=== PATIENT | male | born 1950 | race Caucasian/White ===

== ENCOUNTER → 2016-12-21 | Outpatient (CLI) | payer OTHER, MEDICARE ==
[~2016-12-21] MED LIST: DOXY1TAB6 PO
[2016-12-21 10:13] LABS: ALT/SGPT 63 U/L (12-78); AST/SGOT 42 U/L (15-37); BLOOD UREA NITROGEN 17 mg/dl (7-18); BUN/CREATININE RATIO 17.7 (10-20); CARBON DIOXIDE 33 mmol/L (21-32); CHLORIDE 105 mmol/L (98-107); CREATININE 0.98 mg/dl (0.60-1.40); GLUCOSE 91 mg/dl (70-99); POTASSIUM 4.4 mmol/L (3.5-5.1); SODIUM 142 mmol/L (136-145)
[2016-12-21 10:18] LABS: ALB/GLOB RATIO 1.1 (0.9-2); ALKALINE PHOSPHATASE 79 U/L (45-117); CHOLESTEROL 222 mg/dl (0-200); CHOLESTEROL/HDL RATIO 4.1; HDL CHOLESTEROL 54 mg/dl; LDL CHOLESTEROL CALCULATED 143 mg/dl; TRIGLYCERIDES 127 mg/dl (0-150); VERY LOW DENSITY LIPOPROT CALC 25 mg/dl
== END | disposition home or self-care (01) ==
LOC: C.LAB1850 08:06
PROVIDERS: ATTEND Internal Medicine
DX: M54.5 Low back pain (principal); Z12.5 Encounter for screening for malignant neoplasm of prostate

== ENCOUNTER → 2017-09-08 | Outpatient (CLI) | payer OTHER, MEDICARE ==
[2017-09-08 12:42] LABS: BASO % 0.6 %; BASO ABS # 0.03 K/uL (0-0.2); EOS % 3.4 %; EOS ABS # 0.16 K/uL (0-0.5); HEMATOCRIT 47.7 % (42-52); HEMOGLOBIN 16.6 g/dL (14.0-18.0); IG# 0.01 K/uL (0.00-0.02); LYMPH % 28.9 %; LYMPH ABS # 1.37 K/uL (1.2-3.4); MEAN CELL VOLUME 94.8 fL (80-100); MEAN CORPUSCULAR HGB CONC 34.8 g/dl (32-36); MEAN PLATELET VOLUME 10.5 fL (7.4-10.4); MONO % 14.3 %; MONO ABS # 0.68 K/uL (0.11-0.59); NEUT % 52.6 %; NEUT ABS # 2.49 K/uL (1.4-6.5); PLATELET COUNT 235 K/uL (130-400); RED CELL DISTRIBUTION WIDTH CV 12.8 % (11.5-14.5); RED CELL DISTRIBUTION WIDTH SD 44.1 fL (36.4-46.3); WHITE BLOOD COUNT 4.74 K/uL (4.8-10.8)
[2017-09-08 12:51] LABS: ALT/SGPT 33 U/L (12-78); AST/SGOT 23 U/L (15-37); BLOOD UREA NITROGEN 13 mg/dl (7-18); CALCIUM 9.2 mg/dl (8.5-10.1); CARBON DIOXIDE 32 mmol/L (21-32); CREATININE 1.11 mg/dl (0.60-1.40); GLUCOSE 91 mg/dl (70-99); SODIUM 140 mmol/L (136-145)
[2017-09-08 13:02] LABS: ALKALINE PHOSPHATASE 79 U/L (45-117)
== END | disposition home or self-care (01) ==
LOC: C.LAB1850 10:13
PROVIDERS: ATTEND Internal Medicine
DX: K40.90 Unilateral inguinal hernia, without obstruction or gangrene, not specified as recurrent (principal)

== ENCOUNTER → 2017-12-04 | Outpatient (CLI) | payer OTHER, MEDICARE | END | disposition home or self-care (01) | LOC: C.LAB1850 09:11 | PROVIDERS: ATTEND Internal Medicine | DX: E78.5 Hyperlipidemia, unspecified (principal); N52.9 Male erectile dysfunction, unspecified ==

== ENCOUNTER 2020-10-19 05:24 | Observation (INO) ==
--- NOTE | 2020-10-19 06:26 | Emergency Department Note ---
Impression & Plan Brain TIA ED Provider Note NAME: SAI DAVIS AGE: 70 SEX: M ARRIVES VIA: Walk-In INFORMANT: Patient and the patient's ED PROVIDER(S): Saira Burroughs DO CHIEF COMPLAINT: Left arm weakness PLAN: Disposition: The patient will be evaluated by the [facility] [place] [facility] Condition: Stable MEDICAL DECISION MAKING: This is a 70-year-old male patient who has noted some episodes of being uncoordinated with his left arm over the past [address] scan of the brain was negative. The patient is in a normal sinus rhythm. Laboratory studies were unremarkable. The patient has no previous history of stroke or TIA. He does have a strong family history of multiple health problems. I am concerned about the patient's 3 separate episodes yesterday where he had neurological symptoms including being uncoordinated or weak in his left arm, feeling unsteady or leaning to one side, and possibly issues expressing himself. I discussed the case with the [facility] [place] [facility] and they will evaluate for further management. Triage Nursing notes reviewed and agree them. Additional history obtained from the patient's who is at the bedside Vital Signs: reviewed and remarkable for hypertension Differential diagnosis: CVA, TIA, anxiety Diagnostics interpreted by me: ECG: Normal sinus rhythm at [address] segment elevation or signs of ischemia. There is no ectopy. Cardiac Monitoring: Normal sinus rhythm at a rate of 61 Laboratory studies: See below Imaging studies: As per stat read CT head: No ICH, mass-effect or edema. No evidence of acute cortical stroke. Visualized sinuses and mastoid air cells are clear. HPI: 70/M arrives for evaluation of symptoms in the left arm. The patient first noted an electric tingling sensation in his left arm at 4 PM yesterday afternoon which lasted for approximately 30 seconds. He did feel a bit unsteady on his feet at that time and felt as if he may not be able to speak appropriately during that time. This quickly passed. At 10 PM last evening, the patient felt uncoordinated with his left hand as he tried to brush his teeth. Again, the symptoms quickly passed. The patient awoke at 3 AM this morning to go to the bathroom but he felt very restless and anxious. He describes not being able to get comfortable. He got up and sat in a table and attempted to write down the symptoms he had throughout the day and noted that he could not effectively right with his left hand and t hat his handwriting was very difficult to read. ROS: See above HPI for pertinent positives & negatives. A total of 10 systems reviewed and were otherwise negative. PAST MEDICAL HISTORY:Rosacea; anxiety PAST SURGICAL HISTORY:Hernia repair; tubular adenoma removal FAMILY HISTORY:Diabetes; heart disease; hypertension SOCIAL HISTORY:The patient is and lives with his . He does not smoke. HOME MEDICATIONS:See list ALLERGIES:None VITALS:See Below PHYSICAL EXAMINATION: HEENT: Head - normocephalic and atraumatic. Pupils are equal, round, and reactive to light. Extraocular eye muscles are intact and sclera are anicteric. Ears - bilaterally patent canals with noninjected tympanic membranes and no evidence of hemotympanum. Nose - moist nasal mucosa without discharge. Mouth - moist buccal mucosa. Oropharynx is nonerythematous and there is no tonsillar exudate or edema noted. Neck: Supple; no JVD, nuchal rigidity, cervical lymphadenopathy, or auscultated bruits. Heart: Regular rate and rhythm. There is a normal S1 and S2 with no murmurs, clicks, or gallops appreciated. Lungs: Clear to auscultation bilaterally with no wheezes, rales, or rhonchi. Abdomen: Soft, completely nontender, nondistended, with good bowel sounds. There are no palpable pulsatile masses or hepatosplenomegaly. There is no guarding, rigidity, or rebound noted. Extremities: No evidence of cyanosis, clubbing, or edema. There are easily palpable peripheral pulses. Neuro:The patient is awake and alert, oriented to day, time, and place. Muscle strength is 5/5 in all 4 extremities. The patient has equal virtualization engineer strength and equal pedal push and pull. There are no cerebellar signs. ED COURSE: Times/Reassessments: 0535: The patient was evaluated in room C4. A complete history and physical was performed. A twelve-lead EKG was obtained. An order was placed for continuous cardiac monitoring. The patient was in a normal sinus rhythm at a rate of 61. Patient will go for CT scan of the brain. I reevaluated the patient upon returning from CAT scan. He has no additional symptoms at this time. I reviewed the results of the CAT scan and laboratory studies with him and his . I discussed the case with Dr. Murguia from the [facility] hospitalist group and they will evaluate for further management. Saira Burroughs, Past Med/Surg History Medical History Adjustment disorder with anxiety Chronic leukopenia History of squamous cell carcinoma Hyperlipidemia Male erectile disorder of organic origin Villous adenoma of rectum Surgical History H/O colonoscopy H/O left inguinal hernia repair (01/01/20) H/O rectal polypectomy History of squamous cell carcinoma excision Family History Father Diabetes Heart disease Kidney disease Hypertension Brother Diabetes Alcohol abuse Depression Hypertension Sister Diabetes Anxiety Depression Hypertension Mother Cerebral artery occlusion Heart disease Myocardial infarction Grandmother Colorectal cancer Other Exogenous obesity Hyperlipidemia No family history of adverse response to anesthesia Denies family history of Ovarian cancer Prostate cancer Breast cancer Social History Smoking Status: Never smoker Second Hand Exposure: No; Hx Alcohol Use: Yes (1 glass of wine with dinner) Alcohol type: wine Alcohol Intake Frequency: 2-3 x/Week Hx Substance Use: No Preferred Language: Faroese Communication Ability: Effective Joggle Press Operator Required: No Beliefs That Will Affect Care: None marital status: Current Living Situation: Spouse current occupational status: retired Feels Safe at Home: Yes Dental Care, Regularly: Yes Physical Activity Frequency: Daily Seatbelt Use: always Assistive Devices: Denture - Upper and Glasses Allergies Allergies Allergy/AdvReac Type Severity Reaction Status Date / Time No Known Allergies Allergy Verified 10/19/20 05:42 Home Meds Home Medications Medication Instructions Recorded Confirmed Ocuvite Eye Health 2 tab PO DAILY 12/24/19 10/19/20 calcium carbonate-vitamin D3 1 tab PO DAILY 12/24/19 10/19/20 [Calcium 500 + D] multivitamin 1 tab PO DAILY 12/24/19 10/19/20 glucos sul [id number] 1 cap PO DAILY 10/19/20 10/19/20 [Glucosamine Chondroitin] omega-3 fatty acids [Fish Oil 1,000 mg PO DAILY 10/19/20 10/19/20 Concentrate] Previous Rx's Medication Instructions Recorded doxycycline hyclate 50 mg capsule 50 mg PO DAILY #90 cap 07/26/20 hydroxyzine HCl 25 mg tablet 25 mg PO TID PRN #90 tab 10/15/20 Results & Data (ED) Vital Signs Vital Signs - 24 hr 10/19/20 05:29 10/19/20 05:43 10/19/20 05:50 Temperature 36.8 C Temperature Source Temporal Artery Scan Pulse Rate 61 71 60 Pulse Rate from SpO2 Sensor 72 61 Respiratory Rate 16 22 20 Respiratory Effort / Characteristics Non-Labored Spontaneous Respiratory Depth Normal Respiratory Pattern Regular Blood Pressure 155/85 H Blood Pressure Mean 108 Blood Pressure Position Sitting Pulse Oximetry 99 97 96 Oxygen Delivery Method Room Air Sepsis Recent Fever Within 48 Hours No Sepsis New/Unexplained Change in Mental Status No Sepsis Action Taken by Nursing No Action Required 10/19/20 05:56 10/19/20 06:00 10/19/20 06:23 Temperature 36.8 C Temperature Source Oral Pulse Rate 63 61 Pulse Rate from SpO2 Sensor 63 Respiratory Rate 16 19 24 Respiratory Effort / Characteristics Non-Labored Spontaneous Respiratory Depth Normal Respiratory Pattern Regular Blood Pressure Blood Pressure Mean Blood Pressure Position Pulse Oximetry 99 96 Oxygen Delivery Method Room Air Sepsis Recent Fever Within 48 Hours Sepsis New/Unexplained Change in Mental Status Sepsis Action Taken by Nursing 10/19/20 06:24 10/19/20 06:30 10/19/20 06:31 Temperature Temperature Source Pulse Rate 59 L 59 L 75 Pulse Rate from SpO2 Sensor 59 L 60 74 Respiratory Rate 19 15 24 Respiratory Effort / Characteristics Respiratory Depth Respiratory Pattern Blood Pressure 156/84 H 156/85 H Blood Pressure Mean 108 108 Blood Pressure Position Pulse Oximetry 98 98 96 Oxygen Delivery Method Sepsis Recent Fever Within 48 Hours Sepsis New/Unexplained Change in Mental Status Sepsis Action Taken by Nursing 10/19/20 06:40 10/19/20 07:00 Temperature Temperature Source Pulse Rate 63 59 L Pulse Rate from SpO2 Sensor 66 59 L Respiratory Rate 20 18 Respiratory Effort / Characteristics Respiratory Depth Respiratory Pattern Blood Pressure 159/95 H Blood Pressure Mean 116 Blood Pressure Position Pulse Oximetry 95 98 Oxygen Delivery Method Sepsis Recent Fever Within 48 Hours Sepsis New/Unexplained Change in Mental Status Sepsis Action Taken by Nursing Laboratory Data Result diagrams: 10/19/20 05:52 10/19/20 05:52 Lab Results 10/19/20 10/19/20 10/19/20 Range/Units 05:52 05:52 06:00 WBC 7.00 (4.8-10.8) K/uL RBC 4.86 (4.7-6.1) M/uL Hgb 15.7 (14.0-18.0) g/dL Hct 45.7 (42-52) % MCV 94.0 (80-100) fL MCH 32.3 (25-34) pg MCHC 34.4 (32-36) g/dL RDW Std Deviation 42.4 (36.4-46.3) fL RDW Coeff of Truman 12.5 (11.5-14.5) % Plt Count 240 (130-400) K/uL MPV 10.2 (7.4-10.4) fL Immature Gran % (Auto) 0.1 % Neut % (Auto) 64.9 % Lymph % (Auto) 20.3 % Gregory % (Auto) 12.4 % Eos % (Auto) 2.0 % Baso % (Auto) 0.3 % Neut # (Auto) 4.54 (1.4-6.5) K/uL Lymph # (Auto) 1.42 (1.2-3.4) K/uL Gregory # (Auto) 0.87 H (0.11-0.59) K/uL Eos # (Auto) 0.14 (0-0.5) K/uL Baso # (Auto) 0.02 (0-0.2) K/uL Immature Gran # (Auto) 0.01 (0.00-0.02) K/uL Sodium 141 (136-145) mmol/L Potassium 3.6 (3.5-5.1) mmol/L Chloride 107 (98-107) mmol/L Carbon Dioxide 31 (21-32) mmol/L Anion Gap 3.0 (3-11) BUN 17 (7-18) mg/dl Creatinine 1.05 (0.6-1.4) mg/dl Est Cr Clr Drug Dosing 67.7 ml/min Est GFR ( Amer) 81.8 Est GFR (Non-Af Amer) 70.6 BUN/Creatinine Ratio 15.8 (10-20) Glucose 99 (70-99) mg/dl POC Glucose 97 (70-99) mg/dl Calcium 9.0 (8.5-10.1) mg/dl Total Bilirubin 0.7 (0.2-1) mg/dl AST 18 (15-37) U/L ALT 35 (12-78) U/L Alkaline Phosphatase 97 (45-117) U/L Total Protein 8.2 (6.4-8.2) gm/dl Albumin 4.2 (3.4-5.0) gm/dl Globulin 4.0 (2.5-4.0) gm/dl Albumin/Globulin Ratio 1.1 (0.9-2) TSH 3.880 (0.300-4.500) uIu/ml Urine Color Urine Appearance (Clear) Urine pH (4.5-7.5) Ur Specific [place] (1.000-1.030) Urine Protein (Negative) Urine Glucose (UA) (Negative) Urine Ketones (Negative) Urine Blood (Negative) Urine Nitrite (Negative) Urine Bilirubin (Negative) Urine Urobilinogen (Negative) Ur Leukocyte Esterase (Negative) 10/19/20 Range/Units 06:12 WBC (4.8-10.8) K/uL RBC (4.7-6.1) M/uL Hgb (14.0-18.0) g/dL Hct (42-52) % MCV (80-100) fL MCH (25-34) pg MCHC (32-36) g/dL RDW Std Deviation (36.4-46.3) fL RDW Coeff of Truman (11.5-14.5) % Plt Count (130-400) K/uL MPV (7.4-10.4) fL Immature Gran % (Auto) % Neut % (Auto) % Lymph % (Auto) % Gregory % (Auto) % Eos % (Auto) % Baso % (Auto) % Neut # (Auto) (1.4-6.5) K/uL Lymph # (Auto) (1.2-3.4) K/uL Gregory # (Auto) (0.11-0.59) K/uL Eos # (Auto) (0-0.5) K/uL Baso # (Auto) (0-0.2) K/uL Immature Gran # (Auto) (0.00-0.02) K/uL Sodium (136-145) mmol/L Potassium (3.5-5.1) mmol/L Chloride (98-107) mmol/L Carbon Dioxide (21-32) mmol/L Anion Gap (3-11) BUN (7-18) mg/dl Creatinine (0.6-1.4) mg/dl Est Cr Clr Drug Dosing ml/min Est GFR ( Amer) Est GFR (Non-Af Amer) BUN/Creatinine Ratio (10-20) Glucose (70-99) mg/dl POC Glucose (70-99) mg/dl Calcium (8.5-10.1) mg/dl Total Bilirubin (0.2-1) mg/dl AST (15-37) U/L ALT (12-78) U/L Alkaline Phosphatase (45-117) U/L Total Protein (6.4-8.2) gm/dl Albumin (3.4-5.0) gm/dl Globulin (2.5-4.0) gm/dl Albumin/Globulin Ratio (0.9-2) TSH (0.300-4.500) uIu/ml Urine Color Yellow Urine Appearance Clear (Clear) Urine pH 6.0 (4.5-7.5) Ur Specific [place] 1.011 (1.000-1.030) Urine Protein Negative (Negative) Urine Glucose (UA) Negative (Negative) Urine Ketones Negative (Negative) Urine Blood Negative (Negative) Urine Nitrite Negative (Negative) Urine Bilirubin Negative (Negative) Urine Urobilinogen Negative (Negative) Ur Leukocyte Esterase Negative (Negative) Discharge Plan Visit Data Chief Complaint: Neuro Symptoms/Deficit Stated Complaint: SHAKING,WEAKNESS,DISORIENTATION,TINGLING IN ARM ED Provider: Saira Burroughs Discharge Problem: Brain TIA Forms Stand Alone Forms: My [facility] Prescriptions Prescriptions: No Action hydroxyzine HCl 25 mg tablet 25 mg PO TID PRN (Reason: itching) Qty: 90 RF: 0 doxycycline hyclate 50 mg capsule 50 mg PO DAILY Qty: 90 RF: 3 calcium carbonate-vitamin D3 [Calcium 500 + D] 500 mg(1,250mg) -200 unit Tablet 1 tab PO DAILY RF: 0 multivitamin Tablet 1 tab PO DAILY RF: 0 Ocuvite Eye Health 50 mg-15 unit- 4.5 mg-2.5 mg Tablet,Chewable 2 tab PO DAILY RF: 0 omega-3 fatty acids [Fish Oil Concentrate] 1,000 mg Capsule 1,000 mg PO DAILY RF: 0 Glucosamine Chondroitin 550-30-1 mg Capsule 1 cap PO DAILY RF: 0
[2020-10-19 06:27] LABS: Basophils # (auto) 0.02 K/uL (0-0.2); Basophils % (auto) 0.3 %; Eosinophils # (auto) 0.14 K/uL (0-0.5); Hematocrit (blood only) 45.7 % (42-52); Hemoglobin 15.7 g/dL (14.0-18.0); Immature Granulocytes # (auto) 0.01 K/uL (0.00-0.02); Immature Granulocytes % (auto) 0.1 %; Lymphocytes # (auto) 1.42 K/uL (1.2-3.4); Lymphocytes % (auto) 20.3 %; Mean Corpuscular Hemoglobin 32.3 pg (25-34); Mean Corpuscular Hgb Conc 34.4 g/dL (32-36); Mean Platelet Volume 10.2 fL (7.4-10.4); Monocytes # (auto) 0.87 K/uL (0.11-0.59); Monocytes % (auto) 12.4 %; Neutrophils # (auto) 4.54 K/uL (1.4-6.5); Neutrophils % (auto) 64.9 %; Platelet Count 240 K/uL (130-400); RDW Coefficient of Variation 12.5 % (11.5-14.5); RDW Standard Deviation 42.4 fL (36.4-46.3); Red Blood Count 4.86 M/uL (4.7-6.1)
[2020-10-19 06:41] LABS: Appearance Urine Clear (Clear); Bilirubin Urine Negative (Negative); Blood Urine Negative (Negative); Color Urine Yellow; Glucose Urine UA Negative (Negative); Ketones Urine Negative (Negative); Leukocyte Esterase Urine Negative (Negative); Nitrite Urine Negative (Negative); Protein Urine Negative (Negative); Specific Gravity Urine 1.011 (1.000-1.030); Urobilinogen Urine Negative (Negative)
--- NOTE | 2020-10-19 06:41 | XRay Report ---
XR chest 1V portable HISTORY: 70 years-old Male weakness acute weakness COMPARISON: Chest radiographs 02/16/2016 TECHNIQUE: Portable AP view of the chest FINDINGS: Cardiomediastinal and hilar silhouettes are within normal limits. No pneumothorax, pleural effusion, airspace consolidation or overt pulmonary edema. Healed chronic right-sided rib fractures. Degenerati ve changes of the shoulders and spine. IMPRESSION: No acute process. ACT 112: Negative or not required by law. The above report was generated using voice recognition software. It may contain grammatical, syntax o r spelling errors. Electronically signed by: Preet Lambert M.D. 10/19/2020 6:40 AM
[2020-10-19 06:44] LABS: Albumin Level 4.2 gm/dl (3.4-5.0); BUN Creatinine Ratio 15.8 (10-20); Creatinine Clr Calc Pharmacy 67.7 ml/min; Est GFR (African American) 81.8; Est GFR (Non-African American) 70.6; Potassium 3.6 mmol/L (3.5-5.1)
[2020-10-19 06:54] LABS: Albumin Globulin Ratio 1.1 (0.9-2); Bilirubin,Total 0.7 mg/dl (0.2-1); Thyroid Stimulating Hormone 3.88 uIu/ml (0.300-4.500); Total Protein 8.2 gm/dl (6.4-8.2)
--- NOTE | 2020-10-19 07:15 | CT Scan Report ---
CT OF THE HEAD WITHOUT CONTRAST CLINICAL HISTORY: intermittent left arm weakness COMPARISON STUDY: No previous studies for comparison. CT DOSE: 614.27 mGy.cm TECHNIQUE: Helical axial images of the head were obtained without IV contrast. Automated exposure con trol was utilized for the study. A dose lowering technique was utilized adhering to the principles o f ALARA. FINDINGS: No acute intracranial hemorrhage, midline shift or mass effect is present. The ventricular system is unremarkable. Mild white matter hypodensity suggests small vessel disease. The basal cister ns are patent. No extra-axial collections are present. There are no findings to suggest acute dural s inus thrombosis or acute territorial infarct. No significant calvarial abnormalities are present. Vis ualized portions of the sinuses and mastoid air cells are clear. IMPRESSION: No acute intracranial findings. ACT 112: Negative or not required by law. Electronically signed by: Antonio Nj M.D. 10/19/2020 7:13 AM
[2020-10-19 08:35] LABS: Influenza A virus by PCR Negative (Neg); Influenza B virus by PCR Negative (Neg); RSV by PCR Negative (Neg); SARS CoV2 RNA(COVID-19) InHosp NEGATIVE (Negative)
--- NOTE | 2020-10-19 09:12 | History & Physical Report ---
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 MRI brain with subcentimeter area of acute/subacute ischemia in upper right parietal lobe correlates with his left UE tingling and poor motor control CTA head and neck - no stenosis check echocardiogram monitor on tele, observation status consult neurology for recommendations start on aspirin 81mg daily, Lipitor 40mg daily, permissive HTN (normally has well controlled blood pressure) check lipid panel and HbA1c for risk factors (2) Stroke-like symptoms: see above symptoms resolved (3) Hyperlipidemia: Lipitor 40mg daily (4) Chronic leukopenia: WBC is 7k (5) Adjustment disorder with anxiety: takes hydroxyzine 25mg TID PRN for symptoms more stress this past year with PATRICIA, his dog , friend with lung cancer give Benadryl PRN for sleep tonight, he normally uses Tylenol PM History of Present Illness Chief Complaint: my left arm was not working Primary Care Provider: Danish Riggins MD 70 yo male in good health presented to the ED early this morning due to recurrent neurological symptoms in the left upper extremity. He said he remembe rs clearly that the symptoms started at 4pm yesterday (10/18). He had a burning/tingling sensation in left forearm and he felt like his arm was "floppy" when he flexed it at the elbow. At that exact moment he felt that when he went to say something to his he could not form the words but it resolved incredibly quickly. He said it might have been 30 seconds but not more than that. Later that evening he noticed that he was having a difficult time brushing his teeth with his left hand, poor coordination. He got better and he went to bed. He woke up in the night and again his left hand and arm felt "off." He tried writing down his thoughts on a pad of paper and he felt like he had poor fine motor control. He had to focus incredibly hard to write clearly. At that time he went and woke up his and said that he wanted to go to the hospital. He never had changes in vision or obvious facial droop or dysarthria. He did have some momentary dizziness with the left arm symptoms but that also resolved in 30 seconds. No other sensory or motor loss. No chest pain, no dyspnea, no fever/chills, no nausea/vomiting/diarrhea. He reports that he has had a lot of stress and anxiety lately. His dog in May and a close friend was diagnosed with lung cancer in July 2020. He normally does not have elevated blood pressure when in the office. No history of DM or dyslipid emia. He has a family history of ND and stroke in his father and his mother had an ND. He has two brothers and a sister, they are overweight and have mood disorders. Allergies Allergy/AdvReac Type Severity Reaction Status Date / Time No Known Allergies Allergy Verified 10/19/20 05:42 Home Medications Medication Instructions Recorded Confirmed Type Ocuvite Eye Health 2 tab PO DAILY 12/24/19 10/19/20 History calcium carbonate-vitamin D3 1 tab PO DAILY 12/24/19 10/19/20 History [Calcium 500 + D] multivitamin 1 tab PO DAILY 12/24/19 10/19/20 History doxycycline hyclate 50 mg capsule 50 mg PO DAILY #90 cap 07/26/20 10/19/20 Rx hydroxyzine HCl 25 mg tablet 25 mg PO TID PRN #90 tab 10/15/20 10/19/20 Rx glucos sul [id number] 1 cap PO DAILY 10/19/20 10/19/20 History [Glucosamine Chondroitin] omega-3 fatty acids [Fish Oil 1,000 mg PO DAILY 10/19/20 10/19/20 History Concentrate] Past Med/Surg History Medical History Adjustment disorder with anxiety Chronic leukopenia History of squamous cell carcinoma Hyperlipidemia Male erectile disorder of organic origin Villous adenoma of rectum Surgical History H/O colonoscopy H/O left inguinal hernia repair (01/01/20) Left Open Inguinal Hernia Repair with Mesh; Excision of Left inguinal mass; excision of cord lipoma Dr. Heredia 01/01/20 H/O rectal polypectomy History of squamous cell carcinoma excision Family History Father Diabetes Heart disease Kidney disease Hypertension Brother Diabetes Alcohol abuse Depression Hypertension Sister Diabetes Anxiety Depression Hypertension Mother Cerebral artery occlusion Heart disease Myocardial infarction Grandmother Colorectal cancer Other Exogenous obesity Hyperlipidemia No family history of adverse response to anesthesia Denies family history of Ovarian cancer Prostate cancer Breast cancer Social History Smoking Status: Never smoker Second Hand Exposure: No; Do You Dip or Chew Tobacco: No; Tobacco Cessation Education Requested by Patient: No Hx Alcohol Use: Yes Alcohol type: wine Alcohol Intake Frequency: 2-3 x/Week Hx Substance Use: No Preferred Language: Maltese Communication Ability: Effective Health Support Specialist Required: No Beliefs That Will Affect Care: None marital status: Current Living Situation: Spouse Current Living Situation Comment: live with current occupational status: retired Other Information That Helps Us Care for You: Yes (lost dog in April and still grieving) Feels Safe at Home: Yes Safety Concerns: Feels Safe At This Time Dental Care, Regularly: Yes Physical Activity Frequency: Daily Seatbelt Use: always Assistive Devices: None Review of Systems Review of Systems: All systems reviewed & are unremarkable except as noted in HPI & below Physical Exam Constitutional: WD/WN, vitals as above Eyes: PERRL, conjunctivae normal, anicteric sclerae ENMT: external ear and nose normal, oropharynx normal Neck: trachea midline, no thyromegaly Respiratory: normal respiratory effort, lungs clear to auscultation Cardiovascular: RRR, no murmur, no edema Gastrointestinal (Abdomen): normal bowel sounds, soft, nontender, no hepatosplenomegaly Musculoskeletal: no cyanosis or clubbing, extremities motor strength 5/5 Skin: no rashes, warm and dry Neurologic: patellar DTR's 2+ bilat, sensation intact and PERRL, EOMI, acc ommodation nl, no face palsy, no dysarthria Psychiatric: A+Ox3, euthymic affect Lymphatic: no cervical or axillary lymphadenopathy Results & Data Results & Data ([facility]) Vital Signs (Past 12 Hours) Vital Signs Temp Pulse Resp BP Pulse Ox 10/19/20 07:30 59 L 16 150/87 H 98 10/19/20 07:00 59 L 18 159/95 H 98 10/19/20 06:40 63 20 95 10/19/20 06:31 75 24 96 10/19/20 06:30 59 L 15 156/85 H 98 10/19/20 06:24 59 L 19 156/84 H 98 10/19/20 06:23 61 24 10/19/20 06:00 63 19 96 10/19/20 05:56 36.8 C 16 99 10/19/20 05:50 60 20 96 10/19/20 05:43 71 22 97 10/19/20 05:29 36.8 C 61 16 155/85 H 99 Laboratory Results Laboratory Results - last 24 hr 10/19/20 10/19/20 10/19/20 05:52 05:52 06:00 WBC 7.00 RBC 4.86 Hgb 15.7 Hct 45.7 MCV 94.0 MCH 32.3 MCHC 34.4 RDW Std Deviation 42.4 RDW Coeff of Truman 12.5 Plt Count 240 MPV 10.2 Immature Gran % (Auto) 0.1 Neut % (Auto) 64.9 Lymph % (Auto) 20.3 Ellsworth % (Auto) 12.4 Eos % (Auto) 2.0 Baso % (Auto) 0.3 Neut # (Auto) 4.54 Lymph # (Auto) 1.42 Ellsworth # (Auto) 0.87 H Eos # (Auto) 0.14 Baso # (Auto) 0.02 Immature Gran # (Auto) 0.01 Sodium 141 Potassium 3.6 Chloride 107 Carbon Dioxide 31 Anion Gap 3.0 BUN 17 Creatinine 1.05 Est Cr Clr Drug Dosing 67.7 Est GFR ( Amer) 81.8 Est GFR (Non-Af Amer) 70.6 BUN/Creatinine Ratio 15.8 Glucose 99 POC Glucose 97 Calcium 9.0 Total Bilirubin 0.7 AST 18 ALT 35 Alkaline Phosphatase 97 Total Protein 8.2 Albumin 4.2 Globulin 4.0 Albumin/Globulin Ratio 1.1 TSH 3.880 Urine Color Urine Appearance Urine pH Ur Specific Bethel Urine Protein Urine Glucose (UA) Urine Ketones Urine Blood Urine Nitrite Urine Bilirubin Urine Urobilinogen Ur Leukocyte Esterase COVID-19 Eval Order SARS-CoV-2 (PCR) Influenza Type A (PCR) Influenza Type B (PCR) RSV (RT-PCR) 10/19/20 10/19/20 10/19/20 06:12 07:10 07:10 WBC RBC Hgb Hct MCV MCH MCHC RDW Std Deviation RDW Coeff of Truman Plt Count MPV Immature Gran % (Auto) Neut % (Auto) Lymph % (Auto) Ellsworth % (Auto) Eos % (Auto) Baso % (Auto) Neut # (Auto) Lymph # (Auto) Ellsworth # (Auto) Eos # (Auto) Baso # (Auto) Immature Gran # (Auto) Sodium Potassium Chloride Carbon Dioxide Anion Gap BUN Creatinine Est Cr Clr Drug Dosing Est GFR ( Amer) Est GFR (Non-Af Amer) BUN/Creatinine Ratio Glucose POC Glucose Calcium Total Bilirubin AST ALT Alkaline Phosphatase Total Protein Albumin Globulin Albumin/Globulin Ratio TSH Urine Color Yellow Urine Appearance Clear Urine pH 6.0 Ur Specific Bethel 1.011 Urine Protein Negative Urine Glucose (UA) Negative Urine Ketones Negative Urine Blood Negative Urine Nitrite Negative Urine Bilirubin Negative Urine Urobilinogen Negative Ur Leukocyte Esterase Negative COVID-19 Eval Order CovFluRsv at [facility] SARS-CoV-2 (PCR) NEGATIVE Influenza Type A (PCR) Negative Influenza Type B (PCR) Negative RSV (RT-PCR) Negative Diagnostic Findings MRI brain IMPRESSION: 1. There is an acute to subacute subcentimeter infarct identified involving the high right parietal cortex. 2. No additional foci of acute ischemia are identified. 3. There is no hemorrhage or mass effect. CT angiogram head and neck no critical stenosis or aneurysm Code Status & VTE Plan VTE Prophylaxis Plan VTE Prophylaxis will be ordered: Yes PG Care Time/CCT Total # of Minutes Spent Total Time Spent with Patient: Total time spent is greater than 50% in coordination of care (as documented) at patient's floor/unit and/or counseling patient: Coding Level of Care Code 23989 OBS Care - Level 3 Diagnoses Ischemic stroke I63.9 Stroke-like symptoms R29.90 Hyperlipidemia E78.5 Chronic leukopenia D72.819 Adjustment disorder with anxiety F43.22
[2020-10-19] MEDS ORDERED: ACETAMINOPHEN 325 MG TAB PO PRN (12:27)
[2020-10-19] MEDS ORDERED: PHARMACIST DISCHARGE MED REC CONSULT PRN (12:27)
[2020-10-19] MEDS ORDERED: ONDANSETRON INJ 2 MG/ML 2 ML VIAL IV PRN (12:27)
[2020-10-19] MEDS ORDERED: CALCIUM 600MG + VIT D 400 IU TAB PO ONE (13:00)
[2020-10-19] MEDS ORDERED: GADOBUTROL 65ML VIAL IV ONE (13:30)
--- NOTE | 2020-10-19 13:47 | Magnetic Resonance Report ---
MRI OF THE BRAIN COMBO CLINICAL HISTORY: Strokelike symptoms. COMPARISON STUDY: CT of the brain dated 10/19/2020. TECHNIQUE: MRI of the brain was performed utilizing various T1 and T2-weighted sequences in the axial , sagittal, and coronal planes. Contrast-enhanced sequences were acquired following the administratio n of 8 cc of Gadavist. FINDINGS: Brain parenchyma: There is a 6 mm focus of restricted diffusion identified involving the high right p arietal cortex seen on image #18. This likely represents acute to subacute ischemia. No additional fo ci of restricted diffusion are identified. There is no hemorrhage or mass effect. There is age-relate d involutional change noting mild subcortical and periventricular microangiopathic disease. No enhanc ing mass lesion is identified on the postcontrast images. No extra-axial fluid collection is seen. Q uestion foci of laminar necrosis involving right frontal lobe sulci, best seen on coronal FLAIR image #8. The cerebellar tonsils are normal in configuration. Ventricles, sulci, and cisterns: Prominent secondary to involutional change. Pituitary and sella: Unremarkable. Intracranial vasculature: Normal flow voids are maintained at the skull base. Orbits: The bony orbits are grossly intact. Orbital contents are normal in appearance. Sinuses and mastoids: Clear. Calvarium: Unremarkable. Cervical cord: Partially visualized cervical spinal cord is normal in morphology and signal intensity . IMPRESSION: 1. There is an acute to subacute subcentimeter infarct identified involving the high right parietal c ortex. 2. No additional foci of acute ischemia are identified. 3. There is no hemorrhage or mass effect. 4. Additional findings as above. ACT 112: Negative or not required by law. Electronically signed by: Casey Bass M.D. 10/19/2020 1:45 PM
[2020-10-19] MEDS ORDERED: OPTIRAY 320 125ml IV ONE (13:56)
[2020-10-19] MEDS ORDERED: PNEUMOCOCCAL Polysaccharide Vaccine 25mcg/0.5mL vial/Syr IM ONE (14:00)
--- NOTE | 2020-10-19 14:05 | CT Scan Report ---
CT angio neck with con, CT angio head w con CLINICAL HISTORY: 70 years-old Male with stroke symptoms, left sided. Acute strokelike symptoms COMPARISON STUDY: Brain MRI of same day TECHNIQUE: Following the IV administration of 120 mL of Optiray 320, CT angiogram of the head and nec k was performed from the aortic arch to the skull apex. Images are reviewed in the axial, sagittal, a nd coronal planes. 3-D MIPS images are created and assessed. IV contrast was administered without com plication. All measurements were calculated based on NASCET criteria. A dose lowering technique was utilized adhering to the principles of ALARA. CT DOSE: 502.01 mGy.cm FINDINGS: Three-vessel morphology of the thoracic aorta arch. Innominate and imaged subclavian arteri es appear patent. Patent common carotid arteries. Mild mixed plaque of the carotid bulbs and proximal cervical segments of the internal carotid arteries results in less than 50% stenosis bilaterally. No aneurysm, dissection, high-grade stenosis or proximal branch occlusion. Mild luminal narrowing withi n tortuosity at the origin of the left vertebral artery. Vertebral arteries are codominant and otherw ise widely patent. The basilar and posterior cerebral arteries are patent. origin of the left p osterior cerebral artery. Cerebral venous sinuses are patent. There is no abnormal intracranial enhan cement. The subtle acute infarct of the right parietal lobe described on MRI is not definitively seen . Clear lung apices. No pneumothorax. Unremarkable soft tissues. Degenerative changes of the cervical s pine. IMPRESSION:Unremarkable CTA of the head and neck without aneurysm, dissection, high-grade stenosis or arterial occlusion. ACT 112: Negative or not required by law. The above report was generated using voice recognition software. It may contain grammatical, syntax o r spelling errors. Electronically signed by: Preet Lambert M.D. 10/19/2020 2:04 PM
[2020-10-19] MEDS: ATORVASTATIN 40 MG TAB PO SCH (14:24)
[2020-10-19] MEDS: ENOXAPARIN INJ 40 MG/0.4 ML SYR SQ SCH (14:38)
[2020-10-19] MEDS: ASPIRIN 81 MG ECTAB PO SCH (14:39)
--- NOTE | 2020-10-19 16:42 | XCELERA ---
[id number] \\[id number]
[2020-10-19] MEDS ORDERED: diphenhydrAMINE Capsule 25 MG CAP PO PRN (18:20)
[2020-10-20 07:55] LABS: Basophils # (auto) 0.03 K/uL (0-0.2); Basophils % (auto) 0.5 %; Eosinophils # (auto) 0.21 K/uL (0-0.5); Eosinophils % (auto) 3.8 %; Hematocrit (blood only) 42.1 % (42-52); Hemoglobin 14.7 g/dL (14.0-18.0); Immature Granulocytes # (auto) 0.01 K/uL (0.00-0.02); Immature Granulocytes % (auto) 0.2 %; Lymphocytes # (auto) 1.42 K/uL (1.2-3.4); Lymphocytes % (auto) 25.9 %; Mean Corpuscular Hemoglobin 32.2 pg (25-34); Mean Corpuscular Hgb Conc 34.9 g/dL (32-36); Mean Corpuscular Volume 92.3 fL (80-100); Monocytes # (auto) 0.73 K/uL (0.11-0.59); Monocytes % (auto) 13.3 %; Neutrophils # (auto) 3.08 K/uL (1.4-6.5); Neutrophils % (auto) 56.3 %; Platelet Count 216 K/uL (130-400); RDW Coefficient of Variation 12.6 % (11.5-14.5); RDW Standard Deviation 42.7 fL (36.4-46.3); Red Blood Count 4.56 M/uL (4.7-6.1); White Blood Count 5.48 K/uL (4.8-10.8)
[2020-10-20] MEDS: ASPIRIN 81 MG ECTAB PO SCH (08:02)
[2020-10-20] MEDS: ATORVASTATIN 40 MG TAB PO SCH (08:02)
[2020-10-20] MEDS: ENOXAPARIN INJ 40 MG/0.4 ML SYR SQ SCH (08:02)
[2020-10-20 08:25] LABS: BUN Creatinine Ratio 16.6 (10-20); Calcium 9.1 mg/dl (8.5-10.1); Creatinine Clr Calc Pharmacy 70.4 ml/min; Est GFR (African American) 85.7; Potassium 3.7 mmol/L (3.5-5.1)
[2020-10-20 08:44] LABS: Estimated Average Glucose 120 mg/dl; Hemoglobin A1C 5.8 % (4.5-5.6)
[2020-10-20] MEDS ORDERED: CALCIUM 600MG + VIT D 400 IU TAB PO SCH (09:00)
--- NOTE | 2020-10-20 10:08 | Neurology Consultation ---
Date of Consultation October 20, 2020 Assessment & Plan (1) Ischemic stroke: Ischemic stroke within the high right parietal convexity presenting with transient sensory and motor symptoms to the left face and arm. No deficits on neurological examination this morning. Does have evidence of mild mixed plaque within the carotid bulbs and proximal cervical segments of the internal carotid arteries. Has had some premature atrial complexes but no atrial fibrillation. Does have a moderately dilated left atrium, no interatrial shunt. Agree with aspirin 81 mg/day and atorvastatin 40 mg/day. Would recommend a 30-day mobile quality assurance monitor final. No further immediate recommendations. May follow-up in neurology clinic in 3 to 4 weeks. History of Present Illness Reason for Consultation: Stroke Requesting Physician: Dex Murguia Attending Physician: Dex Murguia, DO History of Present Illness The patient is a 70-year-old left-handed male with a chief complaint of left upper extremity numbness, primarily the forearm, with associated numbness/sensory disturbance affecting the left side of the mouth that lasted less than 1 minute and began acutely 2 days ago. He recalls having some associated weakness of the left upper limb as well that was noted while attempting to brush his teeth later that evening. He reports some baseline anxiety, no palpitations. Endorses a history of mild hypercholesterolemia, no history of hypertension or diabetes mellitus although family history positive for these issues. Patient denies a personal history of stroke or TIA. As above symptoms have completely resolved and have not recurred in the context of his current hospitalization. A brain MRI did reveal an acute to subacute subcentimeter infarct involving the high right parietal cortex. Testing described in further detail below. Allergies Allergy/AdvReac Type Severity Reaction Status Date / Time No Known Allergies Allergy Verified 10/19/20 05:42 Home Medications Medication Instructions Recorded Confirmed Type Ocuvite Eye Health 2 tab PO DAILY 12/24/19 10/19/20 History calcium carbonate-vitamin D3 1 tab PO DAILY 12/24/19 10/19/20 History [Calcium 500 + D] multivitamin 1 tab PO DAILY 12/24/19 10/19/20 History doxycycline hyclate 50 mg capsule 50 mg PO DAILY #90 cap 07/26/20 10/19/20 Rx hydroxyzine HCl 25 mg tablet 25 mg PO TID PRN #90 tab 10/15/20 10/19/20 Rx glucos sul [id number] 1 cap PO DAILY 10/19/20 10/19/20 History [Glucosamine Chondroitin] omega-3 fatty acids [Fish Oil 1,000 mg PO DAILY 10/19/20 10/19/20 History Concentrate] Patient History Medical History Adjustment disorder with anxiety Chronic leukopenia History of squamous cell carcinoma Hyperlipidemia Male erectile disorder of organic origin Villous adenoma of rectum Surgical History H/O colonoscopy H/O left inguinal hernia repair (01/01/20) Left Open Inguinal Hernia Repair with Mesh; Excision of Left inguinal mass; excision of cord lipoma Dr. Heredia 01/01/20 H/O rectal polypectomy History of squamous cell carcinoma excision Family History Father Diabetes Heart disease Kidney disease Hypertension Brother Diabetes Alcohol abuse Depression Hypertension Sister Diabetes Anxiety Depression Hypertension Mother Cerebral artery occlusion Heart disease Myocardial infarction Grandmother Colorectal cancer Other Exogenous obesity Hyperlipidemia No family history of adverse response to anesthesia Denies family history of Ovarian cancer Prostate cancer Breast cancer Social History Smoking Status: Never smoker Second Hand Exposure: No; Do You Dip or Chew Tobacco: No; Tobacco Cessation Education Requested by Patient: No Hx Alcohol Use: Yes Alcohol type: wine Alcohol Intake Frequency: 2-3 x/Week Hx Substance Use: No Preferred Language: Maltese Communication Ability: Effective President Educational Institution Required: No Beliefs That Will Affect Care: None marital status: Current Living Situation: Spouse Current Living Situation Comment: live with current occupational status: retired Other Information That Helps Us Care for You: Yes (lost dog in April and still grieving) Feels Safe at Home: Yes Safety Concerns: Feels Safe At This Time Dental Care, Regularly: Yes Physical Activity Frequency: Daily Seatbelt Use: always Assistive Devices: Glasses Review of Systems Constitutional: no fever and no chills Eyes: no blind spots and no diplopia Ear, Nose, Mouth, Throat: no hearing loss Respiratory: no cough and no dyspnea Cardiovascular: no chest pain and no palpitations Gastrointestinal: no nausea and no vomiting Genitourinary: no dysuria Musculoskeletal: no back pain, no neck pain and no myalgia Integumentary: no rash and no lesions Neurologic: as per Subjective / HPI, + localized weakness and + loss of sensation; no tremor(s), no syncope, no headache(s), no confusion and no memory loss Psychiatric: no depression and no anxiety Hematologic / Lymphatic: no easy bleeding and no easy bruising Exam (Neuro) Constitutional: well developed and well nourished; no acute distress Eyes: normal visual garcía by confrontation, PERRL, normal accommodation and EOM intact bilaterally; no fundoscopic abnormality, no nystagmus and no pap illedema Cardiovascular: Vessels: normal carotid upstroke; no carotid bruit Neurologic: Oriented to:: Person, Place and Time Memory: Short Term Intact and Remote Intact Attention: Span Intact and Concentration Intact Langua ge: Naming Objects and Repeating Phrases Speech Fluency: negative Dysarthria Speech Aphasia: negative Aphasia Fund of Knowledge: Current Events, Past History and Vocabulary Cranial Nerves: Normal II (Visual garcía full to confrontation, visual acuity normal), III, IV, (Pupils equal round reactive to light and accommodation, eye movements normal), V (Facial sensation intact), VII (There is no facial droop or weakness), VIII (Hearing intact), IX, X (Palate elevates to midline), XI (Shoulder shrug intact) and XII (Tongue protrudes to midline) Motor Strength: Normal Lower Extremities and Normal Upper Extremities; negative Pronator Drift Motor Tone: Normal Lower Extremities and Normal Upper Extremities Muscle Bulk/Involuntary Movements: No Involuntary Movements; negative Muscle Atrophy Sensation: Light Touch Intact, Pain/Temperature Intact, Vibration Intact and Proprioception Intact Coordination: Normal; negative Limited Balance, Dysdiadochokinesia, Finger-Nose Abnormal and Heel-Cummings Abnormal Deep Tendon Reflexes: Rt Triceps: 2+, Lt Triceps: 2+, Rt Biceps: 2+, Lt Biceps: 2+, Rt Brachioradialis: 2+, Lt Brachioradialis: 2+, Rt Patellar: 2+, Lt Patellar: 2+, Rt Ankle: 2+ and Lt Ankle: 2+ Special Tests: negative Babinski Present Gait: Normal Station and Gait Results & Data ([facility]) Vital Signs (Past 12 Hours) Vital Signs Temp Pulse Pulse Resp BP Pulse Ox 10/20/20 07:28 36.4 C L 56 L 18 119/72 94 10/20/20 07:04 48 L 10/20/20 04:12 36.7 C 53 L 18 116/65 95 10/20/20 00:34 51 L 10/19/20 23:25 36.7 C 51 L 20 133/76 95 10/19/20 22:39 60 Laboratory Results WBC 5.48, hemoglobin 14.7, hematocrit 42.1, platelet count 216, sodium 139, potassium 3.7, BUN 17, creatinine 1.01, glucose 96, hemoglobin A1c 5.8, triglycerides 70, cholesterol 174, LDL 108, VLDL 14, HDL [address] of the head negative for hemorrhage or acute process. CT angiography of the head and neck without evidence of aneurysm, dissection, high-grade stenosis, or arterial occlusion. Does have mild mixed plaque within the carotid bulbs and proximal cervical segments of the internal carotid arteries resulting in less than 50% stenosis bilaterally. Brain MRI does reveal an acute to subacute subcentimeter infarct involving the high right parietal cortex. There is evidence of mild subcortical and periventricular microangiopathic disease as well. He is imaging findings were observed by the interpreting radiologist. I reviewed the images as well and agree. A transthoracic echocardiogram reveals normal left ventricular systolic function, no regional wall motion abnormalities. There is mild concentric left ventricular hypertrophy, ejection fraction 65 to 70%. No interatrial shunt. The left atrium is moderately dilated. Right atrium is mildly dilated. An electrocardiogram reveals a sinus rhythm with premature atrial complexes. Coding Level of Care Code 84538 Initial In Care Lvl 3 Diagnoses Ischemic stroke I63.9
[2020-10-20] MEDS ORDERED: STROKE PATIENT DISCHARGE STA (10:40)
--- NOTE | 2020-10-20 10:45 | Discharge Summary ---
Date of Service October 20, 2020 Admission HPI Per Admitting Provider 70 yo male in good health presented to the ED early this morning due to recurrent neurological symptoms in the left upper extremity. He said he remembers clearly that the symptoms started at 4pm yesterday (10/18). He had a burning/tingling sensation in left forearm and he felt like his arm was "floppy" when he flexed it at the elbow. At that exact moment he felt that when he went to say something to his he could not form the words but it resolved incredibly quickly. He said it might have been 30 seconds but not more than that. Later that evening he noticed that he was having a difficult time brushing his teeth with his left hand, poor coordination. He got better and he went to bed. He woke up in the night and again his left hand and arm felt "off." He tried writing down his thoughts on a pad of paper and he felt like he had poor fine motor control. He had to focus incredibly hard to write clearly. At that time he went and woke up his and said that he wanted to go to the hospital. He never had changes in vision or obvious facial droop or dysarthria. He did have some momentary dizziness with the left arm symptoms but that also resolved in 30 seconds. No other sensory or motor loss. No chest pain, no dyspnea, no fever/chills, no nausea/vomiting/diarrhea. He reports that he has had a lot of stress and anxiety lately. His dog in May and a close friend was diagnosed with lung cancer in July 2020. He normally does not have elevated blood pressure when in the office. No history of DM or dyslipidemia. He has a family history of NE and stroke in his father and his mother had an NE. He has two brothers and a sister, they are overweight and have mood disorders. Principal Diagnosis Acute ischemic stroke, right parietal lobe Discharge Exam Constitutional WD/WN, vitals as above Eyes PERRL, conjunctivae normal, anicteric sclerae ENMT external ear and nose normal, oropharynx normal Neck trachea midline, no thyromegaly Respiratory normal respiratory effort, lungs clear to auscultation Cardiovascular RRR, no murmur, no edema Gastrointestinal (Abdomen) normal bowel sounds, soft, nontender, no hepatosplenomegaly Musculoskeletal no cyanosis or clubbing, extremities motor strength 5/5 Skin no rashes, warm and dry Neurologic patellar DTR's 2+ bilat, sensation intact and PERRL, EOMI, accommodation nl, no face palsy, no dysarthria Psychiatric A+Ox3, euthymic affect Lymphatic no cervical or axillary lymphadenopathy Discharge Data Allergies Allergy/AdvReac Type Severity Reaction Status Date / Time No Known Allergies Allergy Verified 10/19/20 05:42 Consultations 10/19/20 07:09 ED Decision to Admit Stat 10/19/20 12:27 Consult Neurology Routine Ordered Studies 10/19/20 06:04 CT head/brain wo con Urgent 10/19/20 12:27 CT angio head w con Urgent CT angio neck with con Urgent MR brain wo/w con Routine Hospital Course (1) Ischemic stroke: left handed gentleman who has experienced left handed clumsiness (could not brush his teeth or write with left hand) started 10/18/20 at 4pm and then went away, returned in the evening and then again in the middle of 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 MRI brain with subcentimeter area of acute/subacute ischemia in upper right parietal lobe correlates with his left UE tingling and poor motor control CTA head and neck - no stenosis check echocardiogram - normal EF, mild dilation left atrium, no intra-atrial shunt, no cardiac thrombus monitor on tele - no afib, will arrange for 30 day monitor to rule out paroxysmal afib at home consult neurology for recommendations - agree with aspirin and Lipitor, get Holter monitor, follow up in 3-4 weeks with neurology clinic start on aspirin 81mg daily, Lipitor 40mg daily check lipid panel - LDL is 108, HDL 52 HbA1c is 5.8%, no diabetes no hypertension, BP stable discharge to home today (2) Stroke-like symptoms: see above symptoms resolved (3) Hyperlipidemia: Lipitor 40mg daily LDL is 108, not at goal for stroke (4) Chronic leukopenia: WBC is 7k (5) Adjustment disorder with anxiety: takes hydroxyzine 25mg TID PRN for symptoms more stress this past year with EMMANUELGÓMEZ, his dog , friend with lung cancer he asked about Lexapro or Zoloft encouraged him to speak with his PCP who knows him better, they can decide on treatment plan educated him on counseling, self help, exercise, doing things he enjoys Total Time Total Time Spent Total Time Spent (In Minutes): 30 Total Time Includes: Examination of the Patient, Discharge Planning, Medication Reconciliation and Communication With Other Providers Discharge Plan Discharge Items Patient Disposition: Home - Self-Care Reason For Visit: STROKE Discharge Diagnosis: Acute/subacute ischemic stroke right parietal lobe Anxiety Condition on Discharge: Good Goals: medical management with aspirin and Lipitor follow up with Dr. Riggins and neurology clinic complete Holter monitor, 30 days Activity: Resume your previous activity Lifting: None Sexual Activity: When tolerated Exercise/Sports: Gradually increase as tolerated Driving/Machine Use: No limitations Weightbearing: Full weightbearing Non-emergency contact: Primary Care Provider Call non-emergency contact if: you have any medication questions and your symptoms worsen Follow-up/Referrals: Danish Riggins MD [Primary Care Provider] - (5-7 days) James Ackerman MD [Physician] - (3-4 weeks, can be with PA, stroke follow up) Diet: Heart Healthy Addtl Attending Provider Instructions: Medications: - ASPIRIN: 81mg daily - LIPITOR: 40mg daily, this can lower your LDL (bad cholesterol) watch for muscle aches/pains as this is main side effect Acute ischemic stroke, right parietal lobe likely caused by small vessel ischemia, treatment is as above no evidence of atrial fibrillation on monitor, but should arrange for 30 day monitor at home to rule out paroxysmal atrial fibrillation no severe stenosis in carotid arteries echocardiogram showed normal ejection fraction, no thrombus, no atrial septal defect follow up with Dr. Riggins in one week follow up with neurology clinic in 3-4 weeks Anxiety, depression follow up with Dr. Riggins to discuss a trial of Zoloft or Lexapro as a maintenance medication other effective treatments for mood disorder includes counseling, self help (exercise, family support, doing things that you enjoy) Risk Factors for Stroke: You can reduce your chances of stroke by working with your medical provider to adopt a healthy lifestyle. Some specific ways to lower your chance of stroke are: * If you are a smoker, now is the time to stop smoking cigarettes * If you are diabetic, improve the control of your blood sugars * Avoid excessive amounts of alcohol * Control high blood pressure * Lose weight if you are overweight * Be sure to lead an active lifestyle * Eat a healthy diet low in salt, cholesterol and fat You should know about other risk factors for stroke that you are unable to control. These include: * Age 55 years or older * Male gender * Certain racial groups: , or / * Family History of Stroke, Mini stroke or Heart Attack * Sickle Cell Disease Follow Up: It is important for you to keep your follow up appointments with your medical provider. Who to Call and When: Medical Emergencies: Call 911 immediately if you experience any of the following warning signs and symptoms of Stroke: * Sudden numbness or weakness of the face, arm or leg, especially on one side of the body * Sudden confusion, trouble speaking or understanding * Sudden trouble seeing in one or both eyes * Sudden trouble walking, dizziness, loss of balance or coordination * Sudden severe headache with no cause Do not delay calling 911 if you experience any warning signs or symptoms of a stroke. Delay in seeking medical attention may affect what treatments can be given to you. . Pending Studies at Discharge: No Stand-Alone Forms: Medications to Prevent Stroke, [facility] [employer], Smoking Cessation Medications and DC Order Prescriptions: New atorvastatin 40 mg Tablet 40 mg PO QAM 30 Days Qty: 30 RF: 3 aspirin 81 mg Tablet,Delayed Release (Dr/Ec) 81 mg PO QAM 30 Days Qty: 30 RF: 3 Continued hydroxyzine HCl 25 mg tablet 25 mg PO TID PRN (Reason: itching) Qty: 90 RF: 0 doxycycline hyclate 50 mg capsule 50 mg PO DAILY Qty: 90 RF: 3 calcium carbonate-vitamin D3 [Calcium 500 + D] 500 mg(1,250mg) -200 unit Tablet 1 tab PO DAILY RF: 0 multivitamin Tablet 1 tab PO DAILY RF: 0 Ocuvite Eye Health 50 mg-15 unit- 4.5 mg-2.5 mg Tablet,Chewable 2 tab PO DAILY RF: 0 omega-3 fatty acids [Fish Oil Concentrate] 1,000 mg Capsule 1,000 mg PO DAILY RF: 0 Glucosamine Chondroitin 550-30-1 mg Capsule 1 cap PO DAILY RF: 0 Discharge Orders: Discharge Order (Routine); Ordered 10/20/20 Ordered By: Dex Murguia Admission Data Admit Date/Time: 10/19/20 07:17 Attending Provider: Dxe Murguia Admit Provider: Dex Murguia Primary Care Provider: Danish Riggins Other Providers: Dex Murguia ; Srinivasan Siddiqui Coding Level of Care Code 67677 OBS Care - Discharge Diagnoses Ischemic stroke I63.9 Stroke-like symptoms R29.90 Hyperlipidemia E78.5 Chronic leukopenia D72.819 Adjustment disorder with anxiety F43.22
--- NOTE | 2020-10-20 11:18 | Pharmacy Report ---
Pharmacist Stroke Counseling - Date of Service October 20, 2020 - Scope: Pharmacy has been consulted to provide medication discharge counseling for this patient admitted with ischemic stroke as per the Pharmacist Discharge Counseling for Stroke Patients Protocol. - Medications on Discharge: Home Medications Medication Instructions Recorded Confirmed Ocuvite Eye Health 2 tab PO DAILY 12/24/19 10/19/20 calcium carbonate-vitamin D3 1 tab PO DAILY 12/24/19 10/19/20 [Calcium 500 + D] multivitamin 1 tab PO DAILY 12/24/19 10/19/20 Glucosamine Chondroitin 1 cap PO DAILY 10/19/20 10/19/20 omega-3 fatty acids [Fish Oil 1,000 mg PO DAILY 10/19/20 10/19/20 Concentrate] New Rx's Medication Instructions Recorded doxycycline hyclate 50 mg capsule 50 mg PO DAILY #90 cap 07/26/20 hydroxyzine HCl 25 mg tablet 25 mg PO TID PRN #90 tab 10/15/20 aspirin 81 mg PO QAM 30 Days #30 tab 10/20/20 atorvastatin 40 mg PO QAM 30 Days #30 tab 10/20/20 - Action: The above medications, specifically ones for stroke treatment/prophylaxis, have been reviewed in detail with the patient and/or patient fundraising sale representative(s) prior to discharge. This includes indication, common adverse reactions, drug interactions, and medication administration. Medication counseling has been employed using the teach-back method to ensure understanding. - Outcome: The patient and/or patient fundraising sale representative(s) have demonstrated understanding of the medications. Additional comments: * No barriers to medication compliance observed. Thank you for allowing pharmacy to be involved in the care of this patient. Please call [phone] with any additional questions
== END 2020-10-20 12:30 | disposition home or self-care (01) ==
LOC: 2W 05:24 → ED 05:24 → 2W 12:00